=== PATIENT | male | born 1985 | race Caucasian/White ===

== ENCOUNTER 2016-11-09 21:39 | Emergency (ER) | payer MEDICAID ==
[2016-11-09 22:31] LABS: BASOPHILS 0.3 % (0-2); EOSINOPHILS 2.4 % (0-7); HEMATOCRIT 50.2 % (42.0-54.0); IMMATURE GRANULOCYTES 0.3 % (0-5); LYMPHOCYTES 36.5 % (15-50); MCH 29.9 pg (26.0-34.0); MCHC 33.9 g/dL (31.0-37.0); MCV 88.2 fL (80.0-100.0); MONOCYTES 5.8 % (2-11); NEUTROPHILS 54.7 % (40-80); PLATELET COUNT 234 10x3/uL (130-400); RBC 5.69 10x6/uL (4.20-6.10); RDW 13.1 % (11.5-14.5); WBC 12.2 10x3/uL (4.8-10.8)
[2016-11-09 22:44] LABS: ALBUMIN 3.5 g/dL (3.4-5.0); ALKALINE PHOSPHATASE 69 U/L (46-116); ALT (SGPT) 86 U/L (10-68); AMYLASE - SERUM 29 U/L (25-115); BILIRUBIN - TOTAL 0.58 mg/dL (0.2-1.3); CALC OSMOLALITY 279 mosm/kg (275-300); CARBON DIOXIDE 28.3 mmol/L (21.0-32.0); CHLORIDE - SERUM 104 mmol/L (98-107); CREATININE - SERUM 0.8 mg/dL (0.6-1.3); LIPASE 128 U/L (73-393); POTASSIUM - SERUM 3.5 mmol/L (3.5-5.1); PROTEIN - SERUM 7.4 g/dL (6.4-8.2); SODIUM 139 mmol/L (136-145); UREA NITROGEN 9 mg/dL (7-18); eGFR NON AFRICAN AMERICAN > 90 mL/min (90-120)
[2016-11-09 22:52] LABS: GLUCOSE 152 mg/dL (74-106)
== END 2016-11-09 23:40 | disposition home or self-care (01) ==
LOC: D.ER 21:39
PROVIDERS: Emergency Medicine
DX: K43.9 Ventral hernia without obstruction or gangrene (principal); F41.9 Anxiety disorder, unspecified; F32.9 Major depressive disorder, single episode, unspecified

== ENCOUNTER 2016-11-21 21:57 | Emergency (ER) | payer MEDICAID ==
[2016-11-22 00:45] LABS: HEMATOCRIT 45.7 % (42.0-54.0); HEMOGLOBIN 15.2 g/dL (13.5-17.5); LYMPHOCYTES 41.6 % (15-50); MCHC 33.3 g/dL (31.0-37.0); MEAN PLATELET VOLUME 10.6 fL (7.4-10.4); NEUTROPHILS 49.2 % (40-80); PLATELET COUNT 194 10x3/uL (130-400); RBC 5.25 10x6/uL (4.20-6.10); RDW 12.6 % (11.5-14.5); WBC 9.6 10x3/uL (4.8-10.8)
[2016-11-22 00:58] LABS: ALBUMIN 3.2 g/dL (3.4-5.0); ALKALINE PHOSPHATASE 55 U/L (46-116); ALT (SGPT) 84 U/L (10-68); CALC OSMOLALITY 281 mosm/kg (275-300); CALCIUM 8.6 mg/dL (8.5-10.1); CARBON DIOXIDE 28.6 mmol/L (21.0-32.0); CHLORIDE - SERUM 104 mmol/L (98-107); CREATININE - SERUM 0.9 mg/dL (0.6-1.3); GLUCOSE 128 mg/dL (74-106); MAGNESIUM - SERUM 1.9 mg/dL (1.8-2.4); POTASSIUM - SERUM 3.6 mmol/L (3.5-5.1); PROTEIN - SERUM 6.9 g/dL (6.4-8.2); SODIUM 141 mmol/L (136-145); UREA NITROGEN 11 mg/dL (7-18); eGFR NON AFRICAN AMERICAN > 90 mL/min (90-120)
[2016-11-22 01:26] LABS: APPEARANCE CLEAR (CLEAR); BILIRUBIN NEGATIVE (NEGATIVE); COLOR YELLOW (YELLOW); GLUCOSE NEGATIVE (NEGATIVE); KETONE NEGATIVE (NEGATIVE); LEUKOCYTE ESTERASE NEGATIVE (NEGATIVE); NITRITE NEGATIVE (NEGATIVE); PH 6.5 (5.0-6.0); PROTEIN NEGATIVE (NEGATIVE)
[2016-11-22 14:03] LABS: CALCIUM OXALATE CRYSTALS OCC /hpf (NONE SEEN)
== END 2016-11-22 02:17 | disposition home or self-care (01) ==
LOC: D.ER 21:57
PROVIDERS: Emergency Medicine
DX: R10.9 Unspecified abdominal pain (principal); S29.9XXA Unspecified injury of thorax, initial encounter; W19.XXXA Unspecified fall, initial encounter; Y93.89 Activity, other specified; Y92.89 Other specified places as the place of occurrence of the external cause; F41.9 Anxiety disorder, unspecified; F32.9 Major depressive disorder, single episode, unspecified; F17.200 Nicotine dependence, unspecified, uncomplicated

== ENCOUNTER 2020-03-17 08:37 | Inpatient (IN) | payer OTHER ==
[~2020-03-17] VITALS: Ht 167.6 cm; Wt 136.1 kg
[2020-03-17] VITALS (13 sets, daily range): BP systolic 67–148; BP diastolic 40–85; BMI 48.5
[2020-03-17] MEDS ORDERED: HTN MED? (08:50)
[2020-03-17 09:11] LABS: HEMATOCRIT 45.7 % (42.0-54.0); HEMOGLOBIN 14.9 g/dL (13.5-17.5); MCHC 32.6 g/dL (31.0-37.0); MCV 88.9 fL (80.0-100.0); MEAN PLATELET VOLUME 10.8 fL (7.4-10.4); PLATELET COUNT 157 10x3/uL (130-400); RBC 5.14 10x6/uL (4.20-6.10); RDW 13.6 % (11.5-14.5); WBC 22.1 10x3/uL (4.8-10.8)
[2020-03-17 09:14] LABS: CALC OSMOLALITY 273 mosm/kg (275-300); CHLORIDE - SERUM 99 mmol/L (98-107); CREATININE - SERUM 1.6 mg/dL (0.6-1.3); GLUCOSE 173 mg/dL (74-106); POTASSIUM - SERUM 3.4 mmol/L (3.5-5.1); SODIUM 133 mmol/L (136-145); UREA NITROGEN 24 mg/dL (7-18); eGFR NON AFRICAN AMERICAN 53 mL/min (90-120)
[2020-03-17 09:16] LABS: APTT 37.3 SECONDS (22.8-39.4)
[2020-03-17 09:30] LABS: ALBUMIN 3.1 g/dL (3.4-5.0); ALKALINE PHOSPHATASE 61 U/L (30-120); ALT (SGPT) 101 U/L (10-68); BILIRUBIN - TOTAL 1.03 mg/dL (0.2-1.3); CKMB 5.8 U/L (0.0-3.6); PROTEIN - SERUM 7.4 g/dL (6.4-8.2); TROPONIN-I < 0.017 ng/mL (0.000-0.060)
[2020-03-17 09:32] LABS: CREATINE KINASE 1147 UL (21-232)
[2020-03-17 09:34] LABS: INR 1.22 (0.85-1.17); PROTIME 15.3 SECONDS (11.6-15.0)
--- NOTE | 2020-03-17 09:54 | NUR ---
PT.'S BP=95/51. NOTIFIED DR. HARMON--ORDERED LEVOPHED TO BE INITIATED AT 5MCG/MIN--LEFT HAND.
--- NOTE | 2020-03-17 10:10 | NUR ---
PT.'S BP=67/40--INCREASED LEVPHED GTT TO 10MCG/MIN.
[2020-03-17 10:41] LABS: BACTERIA FEW /HPF (NONE SEEN); BILIRUBIN NEGATIVE (NEGATIVE); EPITHELIAL CELLS 0-5 /hpf (0-5); KETONE NEGATIVE (NEGATIVE); NITRITE NEGATIVE (NEGATIVE); UROBILINOGEN NORMAL mg/dL (< 2); WHITE CELLS - URINE OCC HPF (0-1)
[2020-03-17 12:51] LABS: LYMPHOCYTES 13 % (15-50); MONOCYTES 2 % (2-11); NEUTROPHILS 70 % (40-80); PLATELET ESTIMATE NORMAL
[2020-03-17] MEDS ORDERED: HYDROCHLOROTH12.5 M1 PO (13:52)
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
--- NOTE | 2020-03-17 18:38 | NUR ---
UPDATED PTS MOM PER PTS REQUEST. PTS BP REMAINS STABLE HE IS SITTING UP IN BED RESTING QUIETLY. C/O HIS RLE HURTING AGAIN. PRN MORPHINE GIVEN. NO FURTHER NEEDS.
--- NOTE | 2020-03-17 19:00 | NUR ---
BEDSIDE SHIFT REPORT RECEIVED. GOT PT A SANDWICH, ICE WATER AND A BEDSIDE TABLE. HE REPORTS HIS PAIN 4/10 TO HIS RIGHT LEG. HE WANTS TO KNOW HOW OFTEN HE CAN HAVE THE MORPHINE. LET HIM KNOW IT IS ORDERED EVERY 4 HOURS NEEDED. VERBALIZED UNDERSTANDING. HE REPORTS THE PAIN BEING TOLERABLE AT THIS TIME. VSS. HE IS ON 5 LITERS NC. PT REPORTS HIS HOME CPAP WAS STOLEN. HE HAS SLEEP APNEA. JEFFREY,RT GOT ORDER FOR CPAP/BIPAP PRN. O2 SAT IS 96%. LUNGS ARE CLEAR BILATERALLY. HE DENIES SHORTNESS OF BREATH OR COUGH. BED IS LOW AND CALL LIGHT WITHIN REACH. HE DENIES NEEDS.
[2020-03-18] VITALS (10 sets, daily range): BP systolic 106–131; BP diastolic 57–79
[2020-03-18 05:10] LABS: BASOPHILS 0.1 % (0-2); EOSINOPHILS 0.1 % (0-7); HEMATOCRIT 41.4 % (42.0-54.0); IMMATURE GRANULOCYTES 0.2 % (0-5); LYMPHOCYTES 11.6 % (15-50); MCH 28.3 pg (26.0-34.0); MCHC 31.4 g/dL (31.0-37.0); MCV 90.2 fL (80.0-100.0); MONOCYTES 8.3 % (2-11); NEUTROPHILS 79.7 % (40-80); PLATELET COUNT 145 10x3/uL (130-400); RBC 4.59 10x6/uL (4.20-6.10)
[2020-03-18 05:13] LABS: WBC 16.2 10x3/uL (4.8-10.8)
[2020-03-18 05:21] LABS: ALBUMIN 2.5 g/dL (3.4-5.0); BILIRUBIN - TOTAL 0.81 mg/dL (0.2-1.3); CALCIUM 7.9 mg/dL (8.5-10.1); CARBON DIOXIDE 27.5 mmol/L (21.0-32.0); CREATININE - SERUM 1.3 mg/dL (0.6-1.3); POTASSIUM - SERUM 3.5 mmol/L (3.5-5.1); PROTEIN - SERUM 6.7 g/dL (6.4-8.2)
--- NOTE | 2020-03-18 15:15 | NUR ---
PATIENT TO IR VIA BED NOW.
[2020-03-19] VITALS: BP 123/78
[2020-03-19 04:00] VITALS: BP 116/54
[2020-03-19 05:20] LABS: BASOPHILS 0.1 % (0-2); EOSINOPHILS 0.4 % (0-7); HEMATOCRIT 38.5 % (42.0-54.0); HEMOGLOBIN 12.2 g/dL (13.5-17.5); IMMATURE GRANULOCYTES 0.4 % (0-5); LYMPHOCYTES 14.8 % (15-50); MCH 28.6 pg (26.0-34.0); MCHC 31.7 g/dL (31.0-37.0); MCV 90.2 fL (80.0-100.0); MEAN PLATELET VOLUME 10.7 fL (7.4-10.4); MONOCYTES 9.4 % (2-11); NEUTROPHILS 74.9 % (40-80); PLATELET COUNT 135 10x3/uL (130-400); RBC 4.27 10x6/uL (4.20-6.10); RDW 14.3 % (11.5-14.5)
[2020-03-19 05:30] LABS: WBC 11.4 10x3/uL (4.8-10.8)
[2020-03-19 05:45] LABS: ALBUMIN 2.2 g/dL (3.4-5.0); ALKALINE PHOSPHATASE 58 U/L (30-120); ALT (SGPT) 97 U/L (10-68); CALC OSMOLALITY 273 mosm/kg (275-300); CALCIUM 8.5 mg/dL (8.5-10.1); CARBON DIOXIDE 30.1 mmol/L (21.0-32.0); CHLORIDE - SERUM 102 mmol/L (98-107); CREATININE - SERUM 0.9 mg/dL (0.6-1.3); GLUCOSE 102 mg/dL (74-106); POTASSIUM - SERUM 3.7 mmol/L (3.5-5.1); PROTEIN - SERUM 6.6 g/dL (6.4-8.2); SODIUM 137 mmol/L (136-145); UREA NITROGEN 13 mg/dL (7-18); eGFR NON AFRICAN AMERICAN > 90 mL/min (90-120)
[2020-03-19 08:51] VITALS: BP 108/87
--- NOTE | 2020-03-19 11:19 | NUR ---
IV REMOVED IN RIGHT HAND. PATIENT COMPLAINING OF PAIN. NO BLOOD RETURN. IV CATH TIP INTACT. NEW IV STARTED IN RIGHT UPPER ARM. 20 GAUGE.
[2020-03-19 12:36] VITALS: BP 135/72
[2020-03-19 14:14] VITALS: BMI 48.4
[2020-03-19 16:56] VITALS: BP 120/78
--- NOTE | 2020-03-19 17:33 | NUR ---
PATIENT IN BED. STEWARD/STEWARDESS WINE INFUSING PER ORDERS. DENIES ANY NEEDS AT THIS TIME. FREE FROM SIGNS OF DISTRESS. BED LOW POSITION, CALL LIGHT IN REACH. WILL CONTINUE TO MONITOR.
--- NOTE | 2020-03-19 19:00 | NUR ---
RECEIVED REPORT, ASSUMED CARE, IV PATENT, DENIES NEEDS, NO S/S OF DISTRESS NOTED, BED LOWEST POSITION, CALL LIGHT IN REACH, FIVE ROLL REFINER BATCH MIXER INFUSING, BIPAP ON, REQUESTED A SHOWER
[2020-03-19 20:16] VITALS: BP 144/80
--- NOTE | 2020-03-19 21:41 | NUR ---
IN SHOWER, LINENS CHANGED
[2020-03-20 00:55] VITALS: BP 175/95
--- NOTE | 2020-03-20 04:16 | NUR ---
I have reviewed this patient and I concur with the Shift Assessment completed by the Licensed Practical Nurse today this shift.
[2020-03-20 05:07] VITALS: BP 151/107
[2020-03-20 06:46] LABS: BASOPHILS 0.2 % (0-2); EOSINOPHILS 0.3 % (0-7); HEMOGLOBIN 12.3 g/dL (13.5-17.5); LYMPHOCYTES 17.6 % (15-50); MCH 28.8 pg (26.0-34.0); MCHC 32.4 g/dL (31.0-37.0); MEAN PLATELET VOLUME 10.4 fL (7.4-10.4); MONOCYTES 9.6 % (2-11); NEUTROPHILS 71.3 % (40-80); RBC 4.27 10x6/uL (4.20-6.10); RDW 13.8 % (11.5-14.5); WBC 13.3 10x3/uL (4.8-10.8)
[2020-03-20 06:47] LABS: PLATELET COUNT 170 10x3/uL (130-400)
[2020-03-20 07:12] LABS: ALBUMIN 2.3 g/dL (3.4-5.0); ALKALINE PHOSPHATASE 76 U/L (30-120); BILIRUBIN - TOTAL 1.31 mg/dL (0.2-1.3); CALCIUM 8.1 mg/dL (8.5-10.1); CARBON DIOXIDE 27.1 mmol/L (21.0-32.0); CHLORIDE - SERUM 102 mmol/L (98-107); CREATININE - SERUM 0.7 mg/dL (0.6-1.3); GLUCOSE 95 mg/dL (74-106); POTASSIUM - SERUM 3.7 mmol/L (3.5-5.1); SODIUM 137 mmol/L (136-145); eGFR NON AFRICAN AMERICAN > 90 mL/min (90-120)
[2020-03-20 07:13] LABS: ALT (SGPT) 146 U/L (10-68); CALC OSMOLALITY 271 mosm/kg (275-300); UREA NITROGEN 7 mg/dL (7-18)
[2020-03-20 08:12] VITALS: BP 151/99
--- NOTE | 2020-03-20 08:28 | NUR ---
PT LAYING ON BACK WITH BIPAP ON. EASILY AWAKENED. STATES PAIN IS A 5 OUT OF 10. REDNESS ON RIGHT LOWER LEG SEEMS TO BE HEALING. MARKED ABOVE WHERE REDNESS IS NOW. CL IN REACH. WCTM
--- NOTE | 2020-03-20 11:16 | NUR ---
PT LAYING IN BED. WANTS TO KNOW IF AND WHEN HE HAD COMPANY IF HE COULD GO OUTSIDE. I EXPLAINED TO HIM WHERE THE COURTYARD WAS THAT PATIENTS WERE ALLOWED TO GO OUTSIDE. CL IN REACH. WCTM
[2020-03-20 12:16] VITALS: BP 148/81
--- NOTE | 2020-03-20 15:18 | NUR ---
PT LAYING IN BED. RAIL LET DOWN REQUESTED. STATES BROTHER WILL BE UP LATER AND HE WILL WANT TO GO OUTSIDE THEN. CL IN REACH. MEDS GIVEN PER EMAR. WCTM
[2020-03-20 16:20] VITALS: BP 131/86
[2020-03-20 16:26] VITALS: Ht 167.6 cm; Wt 136.1 kg
[2020-03-20 17:37] LABS: ERYTHROCYTE SEDIMENTATION RATE 85 mm/hr (0-15)
--- NOTE | 2020-03-20 19:00 | NUR ---
RECEIVED REPORT, ASSUMED CARE, IV PATENT, DENIES NEEDS, NO S/S OF DISTRESS NOTED, BED LOWEST POSITION, CALL LIGHT IN REACH, AEROTRIANGULATION SPECIALIST INFUSING, A&O
[2020-03-20 20:00] VITALS: BP 138/72
[2020-03-21] VITALS: BP 157/91
[2020-03-21 04:00] VITALS: BP 161/93
[2020-03-21 06:08] LABS: BASOPHILS 0.5 % (0-2); EOSINOPHILS 0.6 % (0-7); HEMATOCRIT 36.2 % (42.0-54.0); HEMOGLOBIN 11.8 g/dL (13.5-17.5); IMMATURE GRANULOCYTES 2.5 % (0-5); LYMPHOCYTES 15.6 % (15-50); MCH 28.9 pg (26.0-34.0); MCHC 32.6 g/dL (31.0-37.0); MCV 88.5 fL (80.0-100.0); MEAN PLATELET VOLUME 10.4 fL (7.4-10.4); MONOCYTES 9.2 % (2-11); NEUTROPHILS 71.6 % (40-80); PLATELET COUNT 197 10x3/uL (130-400); RBC 4.09 10x6/uL (4.20-6.10); RDW 13.7 % (11.5-14.5); WBC 12.6 10x3/uL (4.8-10.8)
[2020-03-21 06:36] LABS: ALBUMIN 2.2 g/dL (3.4-5.0); ALKALINE PHOSPHATASE 77 U/L (30-120); ALT (SGPT) 123 U/L (10-68); CALC OSMOLALITY 271 mosm/kg (275-300); CALCIUM 8.7 mg/dL (8.5-10.1); CARBON DIOXIDE 27.1 mmol/L (21.0-32.0); CHLORIDE - SERUM 104 mmol/L (98-107); CREATININE - SERUM 0.7 mg/dL (0.6-1.3); GLUCOSE 95 mg/dL (74-106); POTASSIUM - SERUM 3.4 mmol/L (3.5-5.1); PROTEIN - SERUM 6.7 g/dL (6.4-8.2); SODIUM 137 mmol/L (136-145); UREA NITROGEN 7 mg/dL (7-18); eGFR NON AFRICAN AMERICAN > 90 mL/min (90-120)
[2020-03-21 08:10] VITALS: BP 144/94
--- NOTE | 2020-03-21 08:17 | NUR ---
PT AWAKE AND LAYING IN BED. WENT TO BATHROOM WHILE I SCANNED MEDS PER EMAR. STATES PAIN IS A 6 OUT OF 10 BEFORE GOING TO RESTROOM. AFTER RESTROOM 9 OUT OF 10. BOLUS GIVEN PER EMAR. TYLENOL GIVEN FOR FEVER. PT IS URINATING ORANGE. NO OTHER DIFFICULTIES. CL IN REACH. WCTM
--- NOTE | 2020-03-21 12:06 | NUR ---
NOTIFIED Kareem RODRIGUEZ APN ABOUT PT HIGH BP. ONE TIME DOSE ORDERED. WILL GIVE. WCTM
[2020-03-21 12:29] VITALS: BP 175/104
[2020-03-21 16:49] VITALS: BP 126/90
--- NOTE | 2020-03-21 19:00 | NUR ---
RECEIVED REPORT, ASSUMED CARE, IV PATENT, DENIES NEEDS, NO S/S OF DISTRESS NOTED, BED LOWEST POSITION, CALL LIGHT IN REACH, RETAIL SPECIAL EVENT ASSOCIATE INFUSING, BIPAP ON, BREATHING EVEN UNLABORED, RLE ELEVATED ON PILLOW
[2020-03-21 20:00] VITALS: BP 145/90
--- NOTE | 2020-03-21 23:26 | NUR ---
I have reviewed this patient and I concur with the Shift Assessment completed by the Licensed Practical Nurse today this shift.
[2020-03-22] VITALS (7 sets, daily range): BP systolic 116–178; BP diastolic 75–97
[2020-03-22 07:11] LABS: ALBUMIN 2.4 g/dL (3.4-5.0); ALKALINE PHOSPHATASE 83 U/L (30-120); ALT (SGPT) 105 U/L (10-68); BILIRUBIN - TOTAL 0.92 mg/dL (0.2-1.3); CALC OSMOLALITY 269 mosm/kg (275-300); CALCIUM 9.2 mg/dL (8.5-10.1); CARBON DIOXIDE 26.4 mmol/L (21.0-32.0); CHLORIDE - SERUM 100 mmol/L (98-107); CREATININE - SERUM 0.8 mg/dL (0.6-1.3); GLUCOSE 94 mg/dL (74-106); POTASSIUM - SERUM 3.8 mmol/L (3.5-5.1); PROTEIN - SERUM 7.5 g/dL (6.4-8.2); SODIUM 136 mmol/L (136-145); UREA NITROGEN 7 mg/dL (7-18); eGFR NON AFRICAN AMERICAN > 90 mL/min (90-120)
--- NOTE | 2020-03-22 07:19 | NUR ---
PT LAYING ON BACK WITH BIPAP ON. EASILY AWAKENED. CL IN REACH. WCTM
[2020-03-22 08:13] LABS: HEMATOCRIT 37.7 % (42.0-54.0); HEMOGLOBIN 12.2 g/dL (13.5-17.5); MCH 29.1 pg (26.0-34.0); MCHC 32.4 g/dL (31.0-37.0); MEAN PLATELET VOLUME 10.5 fL (7.4-10.4); PLATELET COUNT 275 10x3/uL (130-400); RBC 4.19 10x6/uL (4.20-6.10); RDW 13.7 % (11.5-14.5); WBC 15.2 10x3/uL (4.8-10.8)
[2020-03-22 12:11] LABS: LYMPHOCYTES 19 % (15-50); MONOCYTES 10 % (2-11); NEUTROPHILS 66 % (40-80); PLATELET ESTIMATE NORMAL; ROULEAUX OCC
--- NOTE | 2020-03-22 12:57 | NUR ---
PT AWAKE AND ALERT. WANTS TO BE DISCHARGED. IV THERAPY BEEPING INFUSION COMPLETE. IV FLUIDS EXCHANGED. CL IN REACH. WCTM
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
--- NOTE | 2020-03-22 14:45 | NUR ---
Nutrition follow-up: Pt receiving a consistent CHO diet with po intake 75-100% of most meals Labs reviewed; glucose under very good control - A1c: 6.1% Wt: 300# PO intake good at this time RDN following.
[2020-03-23 04:12] VITALS: BP 140/84
--- NOTE | 2020-03-23 07:05 | NUR ---
A&O RESTING IN BED WITH EYES OPEN. NO C/O PAIN, MORPHINE DIGITAL ACCOUNT MANAGER MANAGING PAIN AT THIS TIME. NO S/S OF ACUTE DISTRESS NOTED. IV TO RIGHT AC, LR INFUSING @ 150ML/HR. SITE PATENT WITHOUT REDNESS OR SWELLING. ON TELEMETRY 99 SR. RLE REDNESS AND SWELLING PRESENT, ELEVATED ON PILLOW. DENIES ANY NEEDS AT THIS TIME. CALL LIGHT IN REACH. WILL CONTINUE TO MONITOR.
[2020-03-23 07:22] LABS: BASOPHILS 0.6 % (0-2); EOSINOPHILS 1.5 % (0-7); HEMATOCRIT 36.7 % (42.0-54.0); HEMOGLOBIN 11.5 g/dL (13.5-17.5); IMMATURE GRANULOCYTES 5.4 % (0-5); LYMPHOCYTES 17.4 % (15-50); MCH 28.3 pg (26.0-34.0); MCHC 31.3 g/dL (31.0-37.0); MCV 90.2 fL (80.0-100.0); MEAN PLATELET VOLUME 9.8 fL (7.4-10.4); MONOCYTES 7.4 % (2-11); NEUTROPHILS 67.7 % (40-80); PLATELET COUNT 302 10x3/uL (130-400); RBC 4.07 10x6/uL (4.20-6.10); RDW 13.7 % (11.5-14.5)
[2020-03-23 07:40] LABS: ALBUMIN 2.3 g/dL (3.4-5.0); ALKALINE PHOSPHATASE 67 U/L (30-120); ALT (SGPT) 81 U/L (10-68); BILIRUBIN - TOTAL 0.69 mg/dL (0.2-1.3); CALC OSMOLALITY 264 mosm/kg (275-300); CALCIUM 8.2 mg/dL (8.5-10.1); CARBON DIOXIDE 26.2 mmol/L (21.0-32.0); CHLORIDE - SERUM 101 mmol/L (98-107); CREATININE - SERUM 0.7 mg/dL (0.6-1.3); GLUCOSE 87 mg/dL (74-106); PROTEIN - SERUM 6.7 g/dL (6.4-8.2); SODIUM 134 mmol/L (136-145); UREA NITROGEN 8 mg/dL (7-18); VANCOMYCIN - TROUGH 20.4 ug/mL (10.0-20.0); eGFR NON AFRICAN AMERICAN > 90 mL/min (90-120)
[2020-03-23 08:55] VITALS: BP 133/89
[2020-03-23 12:57] VITALS: BP 168/98
[2020-03-23] MEDS ORDERED: BACTRIM DS TAB1 EAC1 PO (15:18)
--- NOTE | 2020-03-23 17:46 | NUR ---
DISCHARGED PATIENT HOME WITH FAMILY. DISCONTINUED IV, CATHETER TIP INTACT. WENT OVER DISCHARGE INSTRUCTIONS WITH PATIENT, VERBALIZED UNDERSTANDING. DENIES ANYTHING FURTHER.
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
== END 2020-03-23 17:47 | disposition home or self-care (01) | DRG 871 ==
LOC: D.ER 08:37 → D.EDHOLD 10:32 → D.ICU 10:32 → D.MS 10:32 → D.ICU 13:18 → D.MS 03-18 09:36
PROVIDERS: Family Medicine; ADMIT Family Medicine; ATTEND Family Medicine
DX: A41.9 Sepsis, unspecified organism (principal); N17.0 Acute kidney failure with tubular necrosis; R65.21 Severe sepsis with septic shock; L03.115 Cellulitis of right lower limb; I95.9 Hypotension, unspecified; R00.0 Tachycardia, unspecified; E86.0 Dehydration; E87.6 Hypokalemia; I10 Essential (primary) hypertension; E66.9 Obesity, unspecified; G47.33 Obstructive sleep apnea (adult) (pediatric); R73.9 Hyperglycemia, unspecified